=== PATIENT | female | born 1950 | race African-American/Black ===

== ENCOUNTER 2019-03-30 00:04 | Emergency (ER) | payer OTHER ==
[2019-03-30] MEDS: AMOXICILLIN/CLAV 875 MG TAB PO (04:53)
[2019-03-30] MEDS: HYDROCODONE/APAP (5/325) TAB PO (04:53)
== END 2019-03-30 05:29 | disposition home or self-care (01) ==
LOC: FTE 05:29
DX: K08.9 Disorder of teeth and supporting structures, unspecified (principal); Z85.038 Personal history of other malignant neoplasm of large intestine
CPT/HCPCS: 99283